=== PATIENT | male | born 1970 | race Asian ===

== ENCOUNTER 2016-09-13 09:59 | Day surgery (SDC) | payer OTHER ==
[~2016-09-13] VITALS: Ht 177.8 cm; Wt 88.5 kg
[2016-09-13 10:52] VITALS: O2SAT 99
[2016-09-13] MEDS ORDERED: CEFTRIAXONE SOD 1 GM/ D5W 50 ML IV ONE ×2 (11:15)
[2016-09-13] MEDS ORDERED: PROPOFOL 200MG/ 20ML VIAL (DIPRIVAN) IV ONE (12:00)
[2016-09-13] MEDS ORDERED: DEXAMETHASONE SOD PHOSPHATE 4 MG/ML VIAL IVP ONE (12:00)
[2016-09-13] MEDS ORDERED: MIDAZOLAM HCL 5 MG/5 ML VIAL IVP ONE (12:00)
[2016-09-13] MEDS ORDERED: LR 1,000 ML IV.SOLN IV ONE (12:00)
[2016-09-13] MEDS ORDERED: fentaNYL CITRATE 250 MCG/5 ML AMP IV ONE (12:00)
[2016-09-13] MEDS ORDERED: SEVOFLURANE 15 MIN GAS INH ONE (12:00)
[2016-09-13] MEDS ORDERED: KETOROLAC TROMETHAMINE 30 MG VIAL IVP ONE (12:00)
[2016-09-13] MEDS ORDERED: ONDANSETRON HCL 4 MG/2 ML VIAL IVP ONE (12:00)
[2016-09-13] MEDS ORDERED: ROCURONIUM BROMIDE 10 MG/ML (ZEMURON) IV ONE (12:00)
[2016-09-13] MEDS ORDERED: WATER FOR IRRIGATION,STERILE 1,000 ML IRRIG.SOLN IR ONE (12:00)
[2016-09-13] MEDS ORDERED: IOHEXOL 0 ML IV ONE (12:11)
[2016-09-13] MEDS ORDERED: LR 1,000 ML IV SCH (13:01)
[2016-09-13] MEDS ORDERED: MEPERIDINE HCL/PF 25 MG/ML DISP.SYRIN IVP PRN (13:15)
[2016-09-13] MEDS ORDERED: HYDROmorphone 2 MG/ML VIAL IVP PRN ×2 (13:15)
[2016-09-13] MEDS ORDERED: HYDROmorphone 1 MG INJ. 1 MG/ML AMPUL IVP PRN (13:15)
[2016-09-13 14:25] VITALS: BP 114/73; PULSE 79; RESP 18
== END 2016-09-13 16:30 | disposition home or self-care (01) ==
LOC: SDS 09:59
PROVIDERS: ATTEND Urology
DX: N20.1 Calculus of ureter (principal); I10 Essential (primary) hypertension; K21.9 Gastro-esophageal reflux disease without esophagitis; E78.5 Hyperlipidemia, unspecified
CPT/HCPCS: 52356; 76000; C1769; C2625; J0696; J1100; J1885; J2250; J2405; J2704; J3010; J7060; J7120; Q9967